=== PATIENT | female | born 1990 | race Caucasian/White ===

== ENCOUNTER 2019-03-27 21:19 | Emergency (ER) | payer OTHER | END 2019-03-27 23:28 | disposition home or self-care (01) | LOC: JER 21:19 ==

== ENCOUNTER 2022-06-03 15:18 | Emergency (ER) | payer OTHER ==
[2022-06-03 15:28] VITALS: BP 117/76; PULSE 72; RESP 20; TEMP 98.1; BMI 37.2
[2022-06-03 16:58] LABS: EPI CELLS >36 /uL (0-25.1); HYALINE CASTS 16 /uL (0-3.1); URINE APPEARANCE CLOUDY; URINE BACTERIA 1596 /uL (0-1359); URINE BILIRUBIN NEGATIVE (NEGATIVE); URINE COLOR YELLOW; URINE GLUCOSE (UA) NEGATIVE (NEGATIVE); URINE KETONE TRACE (NEGATIVE); URINE LEUK ESTERASE 3+ (NEGATIVE); URINE NITRITE NEGATIVE (NEGATIVE); URINE PROTEIN TRACE (NEGATIVE); URINE WBC 280 /uL (0-25.8)
[2022-06-03] MEDS ORDERED: AZITHROMYCIN 500 MG TABLET PO ONE (17:06)
[2022-06-03] MEDS ORDERED: cefTRIAXone SODIUM 1 GM VIAL ONE (17:25)
[2022-06-03] MEDS ORDERED: AZITHROMYCIN 250 MG TABLET ONE (17:25)
[2022-06-03 19:27] LABS: URINE RBC 45.7 /uL (0-23.9)
== END 2022-06-03 17:51 | disposition home or self-care (01) ==
LOC: JERFT 15:18
PROC: 3E023GC Introduction of Other Therapeutic Substance into Muscle, Percutaneous Approach (ICD-10-PCS; principal; 2022-06-03)
DX: N39.0 Urinary tract infection, site not specified (principal)
CPT/HCPCS: 36415; 81003; 84703; 87086; 87491; 87591; 99284-25

== ENCOUNTER 2023-03-31 15:58 | Emergency (ER) | payer OTHER ==
[2023-03-31 16:03] VITALS: RESP 18; BMI 37.2
[2023-03-31] MEDS ORDERED: ACETAMINOPHEN 1000 MG/100 ML BAG IVPB ONE (17:10)
[2023-03-31] MEDS ORDERED: DEXAMETHASONE SOD PHOSPHATE 10 MG/1 ML VIAL IVPUSH ONE (17:12)
[2023-03-31] MEDS ORDERED: DEXAMETHASONE SOD PHOSPHATE 10 MG/1 ML VIAL ONE (17:26)
[2023-03-31] MEDS ORDERED: ACETAMINOPHEN INJECTION 100 ML IVPB ONE (17:27)
[2023-03-31 18:43] LABS: BASO % 0.6 % (0-2.0); EOS % 1.5 % (0-4.5); HEMATOCRIT 41.2 % (32.4-45.2); HEMOGLOBIN 13.8 GM/dL (10.7-15.3); LYMPH % 30.6 % (8-40); MCH 30.3 pg (25.7-33.7); MCHC 33.4 g/dl (32.0-36.0); MEAN CELL VOLUME 90.9 fl (80-96); MEAN PLT VOLUME 8.5 fl (7.5-11.1); MONO % 5.2 % (3.8-10.2); NEUT % 62.1 % (42.8-82.8); PLATELET COUNT 355 10^3/uL (134-434); RBC 4.53 M/mm3 (3.60-5.2); RDW 13.6 % (11.6-15.6); WHITE BLOOD COUNT 9.8 K/mm3 (4.0-10.0)
[2023-03-31 18:52] LABS: POTASSIUM 3.7 mmol/L (3.5-5.1)
[2023-03-31 18:54] VITALS: BP 100/58; PULSE 61; TEMP 99.1
[2023-03-31 18:54] LABS: CALCIUM 8.8 mg/dL (8.5-10.1)
[2023-03-31 18:55] LABS: ALBUMIN 3.6 g/dl (3.4-5.0); MAGNESIUM 2.2 mg/dL (1.8-2.4)
[2023-03-31 18:59] LABS: CREATININE 0.8 mg/dL (0.55-1.3)
[2023-03-31 19:00] LABS: BILIRUBIN,TOTAL 0.2 mg/dL (0.2-1)
== END 2023-03-31 19:26 | disposition home or self-care (01) ==
LOC: JER 15:58
PROC: 3E033NZ Introduction of Analgesics, Hypnotics, Sedatives into Peripheral Vein, Percutaneous Approach (ICD-10-PCS; principal; 2023-03-31)
PROC: 3E033GC Introduction of Other Therapeutic Substance into Peripheral Vein, Percutaneous Approach (ICD-10-PCS; 2023-03-31)
DX: R06.02 Shortness of breath (principal); R07.1 Chest pain on breathing; G43.909 Migraine, unspecified, not intractable, without status migrainosus; H53.71 Glare sensitivity; Z20.822 Contact with and (suspected) exposure to COVID-19
CPT/HCPCS: 0241U-QW; 36415; 71046-TC-FY; 80053; 83735; 84703; 85025; 93005; 93010; 99285-25; J1100

== ENCOUNTER 2023-12-12 18:29 | Emergency (ER) | payer OTHER ==
[2023-12-12 18:37] VITALS: BP 127/71; PULSE 70; RESP 18; TEMP 98.9; BMI 32.4
[2023-12-12] MEDS ORDERED: ONDANSETRON 4 MG/2 ML VIAL ONE (20:24)
[2023-12-12] MEDS ORDERED: FAMOTIDINE 20 MG/50 ML IVPB 20 MG/50 ML MG IVPB ONE (20:24)
[2023-12-12] MEDS: ONDANSETRON 4 MG/2 ML VIAL IVPUSH ONE (20:43)
[2023-12-12] MEDS: LACTATED RINGERS SOLUTION 1000 ML INFUS.BAG IV ONE (20:43)
[2023-12-12] MEDS: FAMOTIDINE 20 MG/50 ML IVPB 20 MG/50 ML MG IVPB ONE (20:43)
== END 2023-12-12 21:48 | disposition home or self-care (01) ==
LOC: JER 18:29
PROC: 3E033GC Introduction of Other Therapeutic Substance into Peripheral Vein, Percutaneous Approach (ICD-10-PCS; principal; 2023-12-12)
PROC: 3E030GC Introduction of Other Therapeutic Substance into Peripheral Vein, Open Approach (ICD-10-PCS; 2023-12-12)
DX: R11.2 Nausea with vomiting, unspecified (principal); R19.7 Diarrhea, unspecified; R68.83 Chills (without fever); T78.1XXA Other adverse food reactions, not elsewhere classified, initial encounter; R42 Dizziness and giddiness
CPT/HCPCS: 99284-25